=== PATIENT | female | born 1945 | race Caucasian/White ===

== ENCOUNTER 2022-03-15 13:53 | Emergency (ER) | payer MEDICARE, SELFPAY ==
[2022-03-15 13:58] VITALS: BP 161/76; PULSE 84; RESP 20; TEMP 36.9; O2SAT 98
--- NOTE | 2022-03-15 14:04 | ED.URI ---
HPI - URI/Sore Throat General Chief Complaint: Upper Respiratory Infection Stated Complaint: sinus infection Time Seen by Provider: 03/15/22 14:04 Source: patient and RN notes reviewed History of Present Illness HPI Narrative: Patient is a 76-year-old female who presents to urgent care with complaints of cold-like symptoms with nasal congestion, rhinorrhea and mild cough. Patient states it started on Tuesday was worse yesterday, and now is better again today. Patient denies any fevers, nausea or vomiting. Denies any ill contacts. Patient did have a negative COVID test at home. No other acute complaints. No acute distress noted. Patient aware of the plan care. Some parts of this dictation were generated by voice recognition software and may contain typographical and/or grammatical inaccuracies. Related Data Home Medications Medication Instructions Recorded Confirmed celecoxib 200 mg capsule mg 03/15/22 fluoxetine 60 mg tablet mg 03/15/22 gabapentin 300 mg capsule mg 03/15/22 lisinopril 40 mg tablet mg 03/15/22 metformin 500 mg tablet mg 03/15/22 nifedipine 30 mg tablet,extended mg PO 03/15/22 release omeprazole 20 mg capsule,delayed mg 03/15/22 release ropinirole 0.5 mg tablet mg 03/15/22 semaglutide 1 mg/dose (4 mg/3 mL) mg subcut 03/15/22 subcutaneous pen injector (Ozempic) sertraline 100 mg tablet mg 03/15/22 Allergies Allergy/AdvReac Type Severity Reaction Status Date / Time No Known Allergies Allergy Verified 03/15/22 14:00 Review of Systems Review of Systems: CONSTITUTIONAL: Denies fever, chills, or sweats. EYES: Denies visual changes, redness, or discharge. ENT: Reports rhinorrhea, congestion, facial pressure postnasal drainage CARDIOVASCULAR: Denies chest pain, palpitations, or edema. RESPIRATORY: Reports of cough without dyspnea GASTROINTESTINAL: Denies abdominal pain, nausea, vomiting, or diarrhea. GENITOURINARY: Denies dysuria or hematuria. SKIN: Denies rash or itching. MUSCULOSKELETAL: Denies back pain, joint pain, or myalgia. NEUROLOGIC: Denies headache, numbness, or weakness. All other systems reviewed are negative, except as documented in HPI. PMFSH Comments At the time of my signature, I reviewed and agree with the nursing past medical, surgical, social, and family history. There is no relevant family history pertinent to the patient complaint. Exam Narrative: GENERAL: This is a well-nourished, well-developed patient, in no apparent distress. HEAD: normocephalic, atraumatic. EYES: PERRL. Sclera clear/white. Vision is grossly intact. EARS: External ears normal, auditory canals clear and without drainage, TMs normal without perforation. Hearing grossly intact. NOSE: External nose normal with no obvious nasal discharge, nares without redness, clear rhinorrhea. THROAT: Mucous membranes moist, posterior pharynx clear. Moderate postnasal drainage NECK: Neck supple, non-tender without lymphadenopathy CARDIOVASCULAR: Regular rate and rhythm RESPIRATORY: Clear to auscultation. Breath sounds equal bilaterally. No wheezes, rales, or rhonchi. SKIN: warm, intact with no suspicious lesions or rash, good texture and turgor. NEURO: awake, alert, and oriented to person, place and time. There were no obvious focal neurologic abnormalities. EXTREMITIES: No clubbing, cyanosis, or edema. Course Course Level of Care: Express Care Visit Vital Signs Vital signs: Vital Signs Temperature 98.5 F 03/15/22 13:58 Pulse Rate 84 03/15/22 13:58 Respiratory Rate 20 03/15/22 13:58 Blood Pressure 161/76 H 03/15/22 13:58 Pulse Oximetry 98 03/15/22 13:58 Oxygen Delivery Room Air 03/15/22 13:58 Temperature 98.5 F 03/15/22 13:58 Pulse Rate 84 03/15/22 13:58 Respiratory Rate 20 03/15/22 13:58 Blood Pressure 161/76 H 03/15/22 13:58 Pulse Oximetry 98 03/15/22 13:58 Oxygen Delivery Room Air 03/15/22 13:58 Reviewed- Patient is informed that they may have pre-hy
== END 2022-03-15 14:29 | disposition home or self-care (01) ==
PROVIDERS: Emergency Provider Nurse Practitioner Family; PCP Hospitalist
DX: J32.9 Chronic sinusitis, unspecified (principal); I10 Essential (primary) hypertension; K21.9 Gastro-esophageal reflux disease without esophagitis
CPT/HCPCS: 99213; G0463